=== PATIENT | male | born 2005 | race Caucasian/White ===

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

== ENCOUNTER 2023-11-13 20:29 | Emergency (ER) | payer BC ==
[2023-11-13 21:09] LABS: BASOPHILS ABSOLUTE AUTO 0.02 K/uL (0.00-0.20); BASOPHILS PERCENT AUTO 0.2 % (0.0-2.0); EOSINOPHILS ABSOLUTE AUTO 0.06 K/uL (0.00-0.50); EOSINOPHILS PERCENT AUTO 0.7 % (0.0-5.0); HEMATOCRIT 44.7 % (39.0-49.0); HEMOGLOBIN 15.6 g/dL (13.1-16.8); LYMPHOCYTES ABSOLUTE AUTO 2.82 K/uL (0.50-3.50); LYMPHOCYTES PERCENT AUTO 34.3 % (10.0-50.0); MEAN CORPUSCULAR HEMOGLOBIN 28.3 pg (28.2-33.3); MEAN CORPUSCULAR HGB CONC 34.9 g/dL (31.7-36.0); MEAN CORPUSCULAR VOLUME 81.1 fL (84.0-98.0); MONOCYTES PERCENT AUTO 10.9 % (2.0-14.0); NEUTROPHILS ABSOLUTE AUTO 4.43 K/uL (1.40-7.00); NEUTROPHILS PERCENT AUTO 53.9 % (45.0-80.0); PLATELET COUNT,PLT 273 K/uL (150-350); RED BLOOD CELL COUNT 5.51 M/uL (4.33-5.41); RED CELL DISTRIBUTION WIDTH 13.6 % (11.2-14.1); WHITE BLOOD CELL COUNT,WBC 8.2 K/uL (4.0-10.2)
[2023-11-13 21:32] LABS: ALANINE AMINOTRANSFERASE,ALT 11 U/L (12-78); ALBUMIN 5.1 g/dL (3.4-5.0); ALKALINE PHOSPHATASE 84 IU/L (46-116); ANION GAP 13.5 meq/L (7-15); ASPARTATE AMNIOTRANSFERASE,AST 14 U/L (15-37); BILIRUBIN TOTAL 0.5 mg/dL (0.2-1.0); BLOOD UREA NITROGEN,BUN 21 mg/dL (7-18); CALCIUM 9.4 mg/dL (8.5-10.1); CARBON DIOXIDE,CO2 26.9 mmol/L (21.0-32.0); CHLORIDE,CL 104 mmol/L (98-107); CREATININE 1.11 mg/dL (0.51-1.17); ESTIMATED GFR 98 mL/min (>=60); GLUCOSE RANDOM 80 mg/dL (70-99); MAGNESIUM 2.3 mg/dL (1.8-2.4); POTASSIUM,K 3.4 mmol/L (3.5-5.1); PROTEIN TOTAL,TP 8.3 g/dL (6.4-8.2); SODIUM,NA 141 mmol/L (136-145)
[2023-11-13] MEDS: Dicyclomine 20 MG Tab PO ONE (22:32)
[2023-11-13] MEDS: Lactulose Soln 10 GM/15 ML 30 ML UD Cup PO ONE ×2 (22:32→22:33)
[2023-11-13] MEDS: Potassium Chloride 20 MEQ Tab.ER PO ONE (22:33)
[2023-11-13] MEDS: Sennosides 8.6 MG Tab PO ONE (22:33)
[2023-11-13] MEDS: traMADol 50 MG Tab PO ONE (22:33)
[2023-11-13] MEDS: Take Home: diazePAM 5 MG, 4 Tab Pack PO ONE (22:34)
== END 2023-11-13 22:40 | disposition home or self-care (01) ==
LOC: LL.ED 20:29
DX: R10.12 Left upper quadrant pain (principal); G47.00 Insomnia, unspecified
CPT/HCPCS: 36415; 74019; 80053; 83735; 85025; 86140; 86308; 99284; A9270